=== PATIENT | female | born 1990 | race American Indian/Alaskan Native ===

== ENCOUNTER 2021-12-20 08:03 | Emergency (ER) | payer SELFPAY ==
--- NOTE | 2021-12-20 09:36 | Ultrasound Report ---
[facility] OBSTETRIC ULTRASOUND HISTORY: Ectopic COMPARISON: None. TECHNIQUE: Routine transvaginal OB ultrasound performed. FINDINGS: Uterus: The uterus is anteverted and normal size measuring 9.2 x 4.8 x 5.7 cm. Gestational Sac: No intrauterine gestational sac is seen. Endometrium: 8 mm. No significant abnormality. Ovaries: The right ovary measures 3.5 x 1.7 x 1.4 cm. There are normal follicles. A slightly complex cyst with slightly thickened borders and internal debris is identified measuring 1.2 cm. The left ova ry is unremarkable measuring 1.9 x 1.1 x 1.2 cm. In the left adnexa there is a slightly hypoechoic ma sslike area measuring up to 5.2 x 1.8 x 2.9 cm. No clear gestational sac or pole is seen within this structure. Additional findings: No pelvic fluid collection or free fluid. IMPRESSION No intrauterine is demonstrated. There is a slightly complex cystic lesion in the right ovary measuring 1.2 cm. This may represent a c orpus luteum cyst. There is an ill-defined hypoechoic masslike lesion in the left adnexa which is separate from the left ovary as described above. Please note that an ectopic is not clearly identified but cannot be excluded on this exam. Close interval follow-up and correlation with laboratory values is recommended. Signer Name: Joaquin Shi Jr, MD Signed: 12/20/2021 9:31 AM Workstation Name: [id number]
[2021-12-20 10:07] LABS: Basophils % (Auto) 0.3 % (0.0-1.8); Eosinophils % (Auto) 0.4 % (0.0-4.3); Hematocrit 37.6 % (30.3-42.9); Hemoglobin 12.5 gm/dl (10.1-14.3); Lymphocytes # (Auto) 1.5 K/mm3 (1.2-5.4); Lymphocytes % (Auto) 21.3 % (13.4-35.0); Mean Corpuscular HGB Conc 33 % (30-34); Mean Corpuscular Volume 89 fl (79-97); Monocytes # (Auto) 0.8 K/mm3 (0.0-0.8); Monocytes % (Auto) 11.6 % (0.0-7.3); Platelet Count 172 K/mm3 (140-440); Red Blood Count 4.22 M/mm3 (3.65-5.03); Red Cell Distribution Width 13.4 % (13.2-15.2)
[2021-12-20 10:19] LABS: Alanine Aminotransferase 14 units/L (7-56); Albumin 4.1 g/dL (3.9-5); Blood Urea Nitrogen 7 mg/dL (7-17); Calcium 8.8 mg/dL (8.4-10.2); Hemolysis Index 5
[2021-12-20 10:20] LABS: BUN/Creatinine Ratio 12
[2021-12-20 12:40] LABS: Bilirubin,Urine NEG (Negative); Blood,Urine LG (Negative); Color,Urine Yellow (Yellow); Protein,Urine <15 mg/dL mg/dL (Negative); Urobilinogen,Urine < 2.0 mg/dL (<2.0)
[2021-12-20 12:44] LABS: Bacteria,Urine 1+ /HPF (Negative); Mucus,Urine FEW /HPF
--- NOTE | 2021-12-20 16:51 | Emergency Department Report ---
ED HPI - General Chief complaint: Vaginal Bleeding Stated complaint: ECTAPIC Source: patient Mode of arrival: Ambulatory Limitations: No Limitations - History of Present Illness Initial comments: 31-year-old female presents to the ED complaining vaginal spotting. Patient is a 2 para 0 A1. Patient states that she was evaluated on December. Patient states that her hCG quant was 1022. Patient states that December her hCG quant was 1055. Patient states she has not been evaluated further by any [facility]. She states that she was told that she had a right ovarian cyst and a possible ectopic . She states that she is new to [place] and was fol lowing up for hCG quant level to be drawn. Patient denies any abdominal pain ,fever, chills, nausea,or vomiting present time. Patient is alert and oriented x3. No acute distress noted. No ill appearance noted. - Related Data : 2 Para: 0 Ab: 1 Allergies Allergy/AdvReac Type Severity Reaction Status Date / Time No Known Allergies Allergy Verified 12/20/21 08:18 ED Review of Systems ROS: Stated complaint: ECTAPIC Other details as noted in HPI Constitutional: denies: chills, fever Eyes: denies: eye pain, eye discharge, vision change ENT: denies: ear pain, throat pain Respiratory: denies: cough, shortness of breath, wheezing Cardiovascular: denies: chest pain, palpitations Endocrine: no symptoms reported Gastrointestinal: denies: abdominal pain, nausea, diarrhea Genitourinary: denies: urgency, dysuria, discharge Musculoskeletal: denies: back pain, joint swelling, arthralgia Skin: denies: rash, lesions Neurological: denies: headache, weakness, paresthesias Psychiatric: denies: anxiety, depression Hematological/Lymphatic: denies: easy bleeding, easy bruising ED Past Medical Hx - Past Medical History Previous Medical History?: No ED Physical Exam - General Limitations: No Limitations General appearance: alert, in no apparent distress - Head Head exam: Present: atraumatic, normocephalic - Eye Eye exam: Present: normal appearance - ENT ENT exam: Present: mucous membranes moist - Neck Neck exam: Present: normal inspection - Respiratory Respiratory exam: Present: normal lung sounds bilaterally. Absent: respiratory distress - Cardiovascular Cardiovascular Exam: Present: regular rate, normal rhythm. Absent: systolic murmur, diastolic murmur, rubs, gallop - GI/Abdominal GI/Abdominal exam: Present: soft, normal bowel sounds - Extremities Exam Extremities exam: Present: normal inspection - Back Exam Back exam: Present: normal inspection - Neurological Exam Neurological exam: Present: alert, oriented X3 - Psychiatric Psychiatric exam: Present: normal affect, normal mood - Skin Skin exam: Present: warm, dry, intact, normal color. Absent: rash ED Course Vital Signs 12/20/21 12/20/21 08:13 17:16 Temperature 98.4 F 98.9 F Pulse Rate 93 H 81 Respiratory 16 16 Rate Blood Pressure 100/67 Blood Pressure 102/70 [Left] O2 Sat by Pulse 99 100 Oximetry ED Medical Decision Making - Lab Data Result diagrams: 12/20/21 09:13 12/20/21 09:13 - Radiology Data [facility] [address] [place] [address] Ultrasound Report Signed Patient: ELDER PATE MR#: [id number] : 1990 Acct:[id number] Age/Sex: 31 / F ADM Date: 12/20/21 Loc: ED Attending Dr: Ordering Physician: FELISA FRANCOIS Date of Service: 12/20/21 Procedure(s): US OB transvaginal Accession Number(s): [id number] cc: FELISA FRANCOIS [facility] OBSTETR[facility] ULTRASOUND HISTORY: Ectopic COMPARISON: None. TECHNIQUE: Routine transvaginal OB ultrasound performed. FINDINGS: Uterus: The uterus is anteverted and normal size measuring 9.2 x 4.8 x 5.7 cm. Gestational Sac: No intrauterine gestational sac is seen. Endometrium: 8 mm. No significant abnormality. Ovaries: The right ovary measures 3.5 x 1.7 x 1.4 cm. There are normal follicles. A slightly complex cyst with slightly thickened borders and internal debris is identified measuring 1.2 cm. The left ovary is unremarkable measuring 1.9 x 1.1 x 1.2 cm. In the left adnexa there is a slightly hypoechoic masslike area measuring up to 5.2 x 1.8 x 2.9 cm. No clear gestational sac or pole is seen within this structure. Additional findings: No pelvic fluid collection or free fluid. IMPRESSION No intrauterine is demonstrated. There is a slightly complex cystic lesion in the right ovary measuring 1.2 cm. This may represent a corpus luteum cyst. There is an ill-defined hypoechoic masslike lesion in the left adnexa which is separate from the left ovary as described above. Please note that an ectopic is not clearly identified but cannot be excluded on this exam. Close interval follow-up and correlation with laboratory values is recommended. Signer Name: Joaquin Shi Jr, MD Signed: 12/20/2021 9:31 AM Workstation Name: [id number] Transcribed By: TTR Dictated By: JOAQUIN SIH JR, MD Electronically Authenticated By: JOAQUIN SHI JR, MD Signed Date/Time: 12/20/21930 DD/ 5 TD/TT: - Medical Decision Making 31-year-old female presents to the ED complaining vaginal spotting. Patient is a 2 para 0 A1. Patient states that she was evaluated on December. Patient states that her hCG quant was 1022. Patient states that December her hCG quant was 1055. Patient states she has not been evaluated further by any [facility]. She states that she was told that she had a right ovarian cyst and a possible ectopic . She states that she is new to [place] and was following up for hCG quant level to be drawn. Patient denies any abdominal pain ,fever, chills, nausea,or vomiting present time. Patient is alert and oriented x3. No acute distress noted. No ill appearance noted. consulted with Dr. Ramirez [facility]. Patient decline methotrexate at present time . States that she was offered to take the medication in [place] but declined . She states that she will continue to have hCG level drawn. Patient states that she will follow-up with her [facility] as she was told in [place] that the could be still be viable. Rechecked the patient is resting quietly quietly and comfortable and feeling better. I discussed the results of diagnostic study, my clinical impression and the plan for further treatment with the patient. Patient agrees with plan and discharge at this present time. All question addressed. I have given the patient instruction regarding a diagnosis ,expectation ,follow- up and return precaution. I explained to the patient that emergent condition may arise and to return to the ED for new worsen and any new persisting condition. I have explained the importance of following up with the primary care physician or referral physician listed below has instructed. The patient verbalized understanding of discharge instruction. Critical care attestation.: If time is entered above; I have spent that time in minutes in the direct care of this critically ill patient, excluding procedure time. ED Disposition Clinical Impression: Vaginal bleeding in , Threatened miscarriage in early , Ovarian cyst affecting in first trimester, antepartum Disposition: 01 HOME / SELF CARE / HOMELESS Is pt being admited?: No Does the pt Need Aspirin: No Condition: Stable Instructions: Threatened Miscarriage, Ovarian Cyst, Vaginal Bleeding During , First Trimester, [id number] Additional Instructions: Follow-up with [facility] to have hCG quant redrawn in 48 hours, hCG quant today is 701.1 Referrals: [facility] [Primary Care Provider] - 3-5 Days [facility] [Provider Group] - 3-5 Days Forms: Work/School Release Form(ED) Time of Disposition: 17:42
[2021-12-20 17:17] VITALS: BP 102/70
== END 2021-12-20 17:42 | disposition home or self-care (01) ==
LOC: ED 08:03
DX: O20.0 Threatened abortion (principal); O34.81 Maternal care for other abnormalities of pelvic organs, first trimester; Z3A.01 Less than 8 weeks gestation of pregnancy
CPT/HCPCS: 36415; 76817; 80053; 81001; 84702; 85025; 86850; 86900; 86901; 99284